=== PATIENT | female | born 1985 | race African-American/Black ===

== ENCOUNTER 2021-09-06 16:43 | Emergency (ER) | payer OTHER ==
[~2021-09-06] VITALS: Ht 170.2 cm; Wt 95.0 kg
[2021-09-06 17:26] LABS: BASOPHILS % 0.4 % (0.0-2.0); EOSINOPHILS % 0.5 % (0.0-5.0); HEMATOCRIT. 36.5 % (36.0-48.0); HEMOGLOBIN. 12.2 g/dL (12.0-16.0); LYMPHOCYTES % 28.5 % (20.0-50.0); MEAN CORPUSCULAR HEMOGLOBIN 31.2 pg (28.0-32.0); MEAN CORPUSCULAR VOLUME 93.1 fL (81.0-99.0); MEAN PLATELET VOLUME 7.9 fl (7.4-10.4); MONOCYTES % 5.5 % (2.0-8.0); NEUTROPHILS % 65.1 % (40.0-76.0); PLATELET 217 x1000/uL (130-400); RED BLOOD CELL COUNT 3.92 mill/uL (4.2-5.4); RED CELL DISTRIBUTION WIDTH 14.6 % (11.6-14.6)
[2021-09-06 17:34] LABS: CHLORIDE 103 mEq/L (98-107)
[2021-09-06 17:58] LABS: B-HCG QUANTITATIVE 71916 mIU/mL (<3)
[2021-09-06 18:33] LABS: CLARITY URINE CLEAR (CLEAR); COLOR URINE YELLOW (YELLOW); KETONES URINE NEGATIVE (NEGATIVE); LEUKOCYTE ESTERASE URINE NEGATIVE (NEGATIVE); NITRITE URINE NEGATIVE (NEGATIVE); OCCULT BLOOD URINE TRACE (NEGATIVE); PROTEIN URINE NEGATIVE (NEGATIVE); SPECIFIC GRAVITY URINE 1.028 (1.005-1.030)
[2021-09-06 19:00] VITALS: BP 139/90
[2021-09-06] MEDS ORDERED: POTASSIUM CHLORIDE 20MEQ TABLET SR PO ONE (19:00)
== END 2021-09-06 19:20 | disposition home or self-care (01) ==
LOC: ER 16:43
DX: O20.0 Threatened abortion (principal); O99.281 Endocrine, nutritional and metabolic diseases complicating pregnancy, first trimester; O26.891 Other specified pregnancy related conditions, first trimester; E87.6 Hypokalemia; O34.11 Maternal care for benign tumor of corpus uteri, first trimester; Z98.890 Other specified postprocedural states; Z3A.09 9 weeks gestation of pregnancy
CPT/HCPCS: 36415; 76801; 80053; 81003; 81025; 84443; 84702; 85025; 86850; 86900; 99284